=== PATIENT | female | born 1960 | race Caucasian/White ===

== ENCOUNTER 2020-05-27 07:16 | Outpatient (CLI) | payer OTHER, SELFPAY ==
--- NOTE | ~2020-05-27 | MM_ITS ---
EXAMINATION: MM screening abhilash BI w patience HISTORY: Screening mammogram TECHNIQUE: Craniocaudal and mediolateral oblique 3-D tomosynthesis images were obtained and synthetic 2-D images were generated. CAD analysis was submitted and interpreted. COMPARISON: 10/09/2017, 10/19/2015, 09/25/2014 bilateral digital screening mammogram examinations BREAST PARENCHYMAL COMPOSITION: There are scattered areas of fibroglandular density. FINDINGS: There is no evidence of suspicious mass, calcification, or architectural distortion to sugg est malignancy in either breast. There has been no suspicious interval change. IMPRESSION: 1. No mammographic evidence of malignancy. 2. Recommend routine screening mammography in one year. BI-RADS Category 1: Negative Reviewed, dictated and finalized at location [facility]
== END 2020-05-27 07:17 | disposition home or self-care (01) ==
LOC: ANHIMG 07:22
PROVIDERS: PCP Internal Medicine; Visit Provider Obstetrics & Gynecology
DX: Z12.31 Encounter for screening mammogram for malignant neoplasm of breast (principal)
CPT/HCPCS: 77063; 77067

== ENCOUNTER 2024-11-28 11:48 | Emergency (ER) | payer OTHER, SELFPAY ==
--- NOTE | 2024-11-28 12:04 | ED_ITS ---
HPI - Skin/Abscess/Foreign Bdy General Chief complaint: Skin/Abscess/Foreign Body Stated complaint: RASH Time Seen by Provider: 11/28/24 11:51 Source: patient Mode of arrival: ambulatory Limitations: no limitations History of Present Illness HPI narrative: Patient is a 63-year-old female who presents with rash to bilateral upper arms primarily on the left. Patient was cleaning alleyway weeds 5 days ago. Reports this started as a small red itchy rash on forearm of left arm but has now spread up the arm and onto the right arm. Denies any pain or drainage from rash but it is swollen, red, warm to touch and has small blisters. Patient has tried hydrocortisone cream and liquid Benadryl. Related Data Home Medications ?Medication ?Instructions ?Recorded ?Confirmed ?Last Taken ?Type amlodipine 10 mg tablet 10 mg PO DAILY 11/28/24 11/28/24 Unknown History anastrozole 1 mg tablet 1 mg PO DAILY 11/28/24 11/28/24 Unknown History apixaban 5 mg tablet (Eliquis) 5 mg PO DAILY 11/28/24 11/28/24 Unknown History coenzyme Q10 50 mg capsule (Co 50 mg PO DAILY 11/28/24 11/28/24 Unknown History Q-10) ergocalciferol (vitamin D2) 1,250 50,000 unit PO WEEKLY 11/28/24 11/28/24 Unknown History mcg (50,000 unit) capsule furosemide 80 mg tablet 40 mg PO DAILY 11/28/24 11/28/24 Unknown History levothyroxine 50 mcg tablet 50 mcg PO DAILY 11/28/24 11/28/24 Unknown History losartan 25 mg tablet 25 mg PO DAILY 11/28/24 11/28/24 Unknown History metoprolol succinate 50 mg 150 mg PO DAILY 11/28/24 11/28/24 Unknown History tablet,extended release 24 hr pravastatin 80 mg tablet 80 mg PO DAILY 11/28/24 11/28/24 Unknown History pyridoxine (vitamin B6) 50 mg 50 mg PO DAILY 11/28/24 11/28/24 Unknown History capsule semaglutide 2 mg/dose (8 mg/3 mL) 2 mg subcut WEEKLY 11/28/24 11/28/24 Unknown History subcutaneous pen injector (Ozempic) Allergies Allergy/AdvReac Type Severity Reaction Status Date / Time codeine Allergy Mild HALLUCINATI Verified 11/28/24 12:11 ONS Review of Systems 2 Review of Systems: All systems reviewed & are unremarkable except as noted in HPI and below Constitutional: Constitutional: Denies body ache(s), Denies chills, Denies fatigue, Denies fever(s), Denies headache(s), Denies malaise and Denies weakness Eyes: Eyes: Denies blurry vision, Denies irritation and Denies loss of vision ENT: Denies otalgia, Denies headache(s), Denies nasal discharge, Denies sinus pain and Denies sore throat Cardiovascular: Cardiovascular: Denies chest pain, Denies irregular heart rhythm and Denies dyspnea Respiratory: Respiratory: Denies dyspnea Gastrointestinal: Gastrointestinal: Denies abdominal pain, Denies melena, Denies hematochezia, Denies diarrhea, Denies nausea and Denies vomiting Musculoskeletal: Musculoskeletal: Denies back pain, Denies myalgias and Denies arthralgias Integumentary/Breasts: Skin/Breast: Reports pruritus and Reports rash Neurologic: Denies headache(s), Denies loss of vision and Denies weakness Psychiatric: Psychiatric: Reports no additional psychiatric complaints Endocrine: Endocrine: Denies fatigue PMFSH Comments At time of signature, agree with nursing past medical, surgical, social and family history. There is no relevant family history pertinent to the presenting complaint. Exam 2 Const: General: cooperative, healthy appearing, comfortable, no acute distress and well nourished Nutritional Appearance: well nourished O rientation/consciousness: patient oriented x3 Limitations: no limitations HENMT: Head: normal to inspection, normocephalic and atraumatic Ears: h earing grossly normal bilaterally and external ears normal Face/Nose/Sinus: N ormal external nose present, normal facial exam and face symmetric Face and sinus: normal facial exam and face symmetric Mouth: Yes lip normal Eyes: General: appearance normal, both eyes and all related structures A lignment and Position: alignment normal and position normal Periorbital: p eriorbital findings normal Eyelids: eyelids normal Pupils: Equal, round and reactive pupils present EOM: EOMs intact bilaterally Neck: Neck: normal visual inspection, full ROM and supple Chest: Chest palpation & inspection: normal inspection of the chest Resp: Effort & Inspection: normal respiratory effort and able to speak in complete sentences Auscultation: clear to auscultation bilaterally Cardio: Rate: regular rate Rhythm: regular rhythm Heart sounds: S1 normal heart sound present and S2 normal heart sound present GI: Inspection: normal to inspection Skin: Full body images: 1. Large area of erythema, vesicles, swelling and warm to touch 2. Small patches of erythema with vesicl es 3. Small patches of erythema with vesicl es Neuro: General: patient oriented x3 and moves all extremities Cranial nerves: Yes Equal, round and reactive pupils present Speech: normal speech Gait exam (Neuro): Normal gait present Extrem: General: normal to inspection, full ROM and no edema Psych: Appearance: grossly normal and well kempt Mental Status: mental status grossly normal Speech and movement: Normal speech and movement present Affect: normal affect Attitude: cooperative Thought process: Normal thought process present Course Course Emergency Course: Patient is aware of diagnosis, understands and agrees to treatment plan. Anticipatory guidance given. Patient agrees to follow-up as directed and is aware of reasons to seek care at the emergency department. Portions of this record may have been created with voice recognition software Level of Care: Express Care Visit Vital Signs Vital signs: Reviewed MDM - Skin/Abscess/Foreign Bdy MDM Narrative Medical decision making narrative: My dull MDM Differential Diagnosis Differential diagnosis: Likely viral exanthem, allergic reaction to drug, cellulitis, insect bites and contact dermatitis Medical Records Attestation: I reviewed the patient's medical records. Discharge Plan Discharge Clinical Impression: Contact dermatitis Qualifiers: Contact dermatitis type: allergic Contact dermatitis trigger: non-food plants Q ualified Code(s): L23.7 - Allergic contact dermatitis due to plants, except food Cellulitis Qualifiers: Site of cellulitis: extremity Site of cellulitis of extremity: upper extremity Laterality: unspecified laterality Qualified Code(s): L03.119 - Cellulitis of unspecified part of limb Patient Disposition: Home Condition: Stable Instructions: Contact Dermatitis (ED), Cellulitis (ED) Additional Instructions: Take steroids in the morning with food. Take antibiotics as directed Prevention is always better than treatment. Learn to identify poison kai, oak, and sumac and avoid it. Wear long sleeves, long pants, shoes, and socks. If you touched the plant, try to keep your hands away from your eyes, mouth, and face. Wash the skin thoroughly with soap and cool water as soon as possible. Scrub under the fingernails with a brush to prevent spreading of the resin to other parts of the body by touching or scratching. Remember to wash any clothing with soap and hot water as the resin can persist for many months and cause further dermatitis. You should NOT use antihistamine creams or lotions, anesthetic creams containing benzocaine, or antibiotic creams containing neomycin or bacitracin to the skin. These creams or ointments could make the rash worse. For some people, adding oatmeal to a bath, applying cool wet compresses, and applying calamine lotion may help to relieve itching. Once the blisters begin weeping fluid, astringents containing aluminum acetate (Burow's solution) and [place] may help to relieve the rash. IF symptoms get worse to follow up with your primary care provider or seek ER visit if you developing difficulty breathing, weakness, dizziness. [place] blood pressure was elevated above 120/80 today at Urgent Care. This puts you above the threshold for follow up visit with a primary care provider. High blood pressure does not usually cause any symptoms, however it may lead to kidney failure, stroke, heart disease just to name a few if untreated . Many people are anxious when seeing a provider or nurse. As a result, you are not diagnosed with hypertension at this time unless your blood pressure is persistently high at two office visits at least one week apart. Some things that can help lower blood pressure are lifestyle modifications, such as light exercise, decreased salt in diet, and weight loss. It is important to follow up with a PCP about this within 1 week. Patient Language: Turkmen Prescriptions: New prednisone 10 mg tablet See Rx Instructions .ROUTE .COMPLEX Qty: 35 0RF Rx Instructions: 40 mg daily for 5 days, 20 mg daily for 5 days, 10 mg daily for 5 days cephalexin 500 mg capsule 500 mg PO Q12H 7 Days Qty: 14 0RF No Action levothyroxine 50 mcg tablet 50 mcg PO DAILY metoprolol succinate 50 mg tablet extended release 24 hr 150 mg PO DAILY Eliquis 5 mg tablet 5 mg PO DAILY furosemide 80 mg tablet 40 mg PO DAILY amlodipine 10 mg tablet 10 mg PO DAILY anastrozole 1 mg tablet 1 mg PO DAILY ergocalciferol (vitamin D2) 1,250 mcg (50,000 unit) capsule 50,000 unit PO WEEKLY losartan 25 mg tablet 25 mg PO DAILY pravastatin 80 mg tablet 80 mg PO DAILY Ozempic 2 mg/dose (8 mg/3 mL) pen injector 2 mg SUBCUT WEEKLY coenzyme Q10 [Co Q-10] 50 mg capsule 50 mg PO DAILY pyridoxine (vitamin B6) 50 mg capsule 50 mg PO DAILY Follow-up/Referrals: Nina,Howard Hodges MD [Primary Care Provider] - 3 Days Time of Disposition: 12:49
[2024-11-28 12:09] VITALS: BP 145/84; PULSE 67; RESP 16; TEMP 36.6; O2SAT 100
== END 2024-11-28 12:53 | disposition home or self-care (01) ==
PROVIDERS: Emergency Provider Nurse Practitioner Family; PCP Internal Medicine
DX: L23.7 Allergic contact dermatitis due to plants, except food (principal); L03.119 Cellulitis of unspecified part of limb; I48.91 Unspecified atrial fibrillation; Z85.3 Personal history of malignant neoplasm of breast; Z79.01 Long term (current) use of anticoagulants
CPT/HCPCS: 99203; G0463